=== PATIENT | female | born 1960 | race Caucasian/White ===

== ENCOUNTER 2025-05-12 11:18 | Emergency (ER) | payer MEDICARE, MEDICAID | END 2025-05-12 14:40 | disposition home or self-care (01) | LOC: ERS 11:18 | DX: R60.0 Localized edema (principal); E78.5 Hyperlipidemia, unspecified; Z79.899 Other long term (current) drug therapy; Z95.1 Presence of aortocoronary bypass graft; Z87.891 Personal history of nicotine dependence ==